=== PATIENT | male | born 1950 | race Caucasian/White ===

== ENCOUNTER → 2016-09-13 | Outpatient (CLI) | payer BC ==
[~2016-09-13] MED LIST: ELIQUIS2.5 MG PO; HYDROCHLOROTHIA25 MG PO; LIPITOR TAB 2020 MG PO; NAPROXEN 250 M250 MG PO; NEURONTIN 300300 MG PO; NORCO 5-325 TA1 EACH PO; TEGRETOL200 MG PO
[2016-09-13 09:37] LABS: BUN/CREATININE RATIO 19 (0-10)
== END ==
LOC: LAB 08:44
PROVIDERS: Emergency Medicine
DX: I12.9 Hypertensive chronic kidney disease with stage 1 through stage 4 chronic kidney disease, or unspecified chronic kidney disease (principal); N18.2 Chronic kidney disease, stage 2 (mild); G50.0 Trigeminal neuralgia; E78.2 Mixed hyperlipidemia
CPT/HCPCS: 36415; 80053; 80061

== ENCOUNTER → 2021-09-26 | Day surgery (SDC) | payer MEDICARE ==
[~2021-09-26] MED LIST changes: +NEURONTIN300 MG PO
== END | disposition home or self-care (01) ==
LOC: OR 07:30
DX: Z12.11 Encounter for screening for malignant neoplasm of colon (principal); D12.0 Benign neoplasm of cecum; D12.3 Benign neoplasm of transverse colon; K64.1 Second degree hemorrhoids; E78.00 Pure hypercholesterolemia, unspecified; Z80.0 Family history of malignant neoplasm of digestive organs; Z88.5 Allergy status to narcotic agent; Z79.899 Other long term (current) drug therapy; Z20.822 Contact with and (suspected) exposure to COVID-19
CPT/HCPCS: J2704; J7040

== ENCOUNTER → 2022-03-04 | Outpatient (CLI) | payer MEDICARE | LOC: MRI 13:00 | DX: Z00.00 Encounter for general adult medical examination without abnormal findings (principal); G50.0 Trigeminal neuralgia | CPT/HCPCS: 36415; 70553; 82565; 84520; A9577 ==